=== PATIENT | female | born 1945 | race Caucasian/White ===

== ENCOUNTER 2021-07-08 14:08 | Emergency (ER) | payer MEDICARE, MEDICAID, SELFPAY ==
--- NOTE | ~2021-07-08 | XR_ITS ---
EXAMINATION: XR CHEST CLINICAL INFORMATION: Weakness COMPARISON: None TECHNIQUE: 2 views of the chest were obtained. FINDINGS: No significant abnormality is noted involving the heart, lungs, mediastinum, bony thorax or soft tissues. XR/XR chest 2V IMPRESSION: No acute disease.
--- NOTE | ~2021-07-08 | XR_ITS ---
EXAMINATION: XR KNEE, RIGHT CLINICAL INFORMATION: Fall, pain COMPARISON: None TECHNIQUE: Single AP view right knee is performed as per request. FINDINGS: Single AP view of the right knee shows no fracture or destructive process. There is no joint narrowing or erosive change. No periostitis. XR/XR knee RT 1V IMPRESSION: Limited exam, only AP view. No bony abnormality. No joint narrowing.
--- NOTE | ~2021-07-08 | CT_ITS ---
EXAMINATION: CT ANGIOGRAM NECK WITH CONTRAST CT ANGIOGRAM BRAIN WITH CONTRAST CLINICAL INFORMATION: Drift right hand. COMPARISON: Head CT performed just prior. TECHNIQUE: Test bolus sequences followed by intravenous administration 100 mL of Omnipaque 350. Helical imaging was performed in the axial plane from the thoracic inlet to the skull vertex. Delayed postcontrast imaging of the head was also performed. The data was processed at the time study technologist workstation for generation of MIP sequences. Angled MIPs and volume rendered reformatted images were also generated at an offline 3D workstation. Stenoses are assessed in accordance with NASCET criteria unless otherwise indicated. This CT examination was performed using dose optimization techniques as appropriate, variously including the following: *Automated exposure control *Adjustment of mA and/or kV according to patient size (this includes techniques or standardized protocols for targeted exams where dose is matched to indication/reason for exam; i.e. extremities or head) *Use of iterative reconstruction technique DLP: 2281 mGy-cm FINDINGS: Head CT: There is no intracranial hemorrhage, large acute infarction, or mass lesion. Hypoattenuation in the cerebral white matter is again identified compatible chronic microangiopathy. Chronic lacunar infarcts are seen in the basal ganglia, thalami, and deep cerebral white matter. There is no hydrocephalus. The visualized paranasal sinuses and mastoid air cells are clear. Neck CTA: Atheromatous changes are seen involving the aortic arch and great vessel origins but without significant stenosis. There is pseudoaneurysm seen arising from the proximal aspect of the right innominate artery measuring 5 mm. Mild atheromatous changes are seen at the carotid bifurcations without associated stenosis. The cervical segments of both ICAs are patent. Both vertebral arteries are patent throughout the neck. Head CTA: No proximal vessel occlusion is seen. The vertebrobasilar system is patent. The condemnation engineer are patent. There is -type origin of the left ORTHOPEDIC ASSISTANT. The ORTHOPEDIC ASSISTANT collaterals are symmetric. The intracranial ICAs are patent. No MCA occlusion is seen. There is focal high-grade stenosis of the left proximal A3 segment with diminutive opacification through the left distal LIVIA territory. No aneurysm is seen. The dural venous sinuses are normally opacified. Non-vascular findings: Interlobular septal thickening is seen in the upper lungs. There is no consolidation. Small centrilobular nodules are present within the upper lobes. The cervical soft tissues are within normal limits. Mild degenerative changes are seen in the cervical spine. CT/CT angio head neck stroke IMPRESSION: Severe stenosis of the left A3 LIVIA segment with poor opacification distally. No proximal vessel occlusion identified. Major neck arteries are patent. This critical result was discussed with Dr. Hector on 07/09/2021 8:47 AM, and it was ascertained that the content and urgency of the report was understood at the time of direct communication. Small pseudoaneurysm measuring 5 mm seen arising from the right innominate artery. Incidentally noted centrilobular nodules within the upper lungs presumably, infectious/inflammatory.
--- NOTE | ~2021-07-08 | CT_ITS ---
EXAMINATION: CT HEAD WITHOUT CONTRAST CLINICAL INFORMATION: Weakness COMPARISON: August 31, 2016 TECHNIQUE: Contiguous axial imaging was performed from the skull base to vertex without intravenous administration of contrast. This CT examination was performed using dose optimization techniques as appropriate, variously including the following: *Automated exposure control *Adjustment of mA and/or kV according to patient size (this includes techniques or standardized protocols for targeted exams where dose is matched to indication/reason for exam; i.e. extremities or head) *Use of iterative reconstruction technique DLP: 931 mGy-cm FINDINGS: There is no evidence of acute intracranial hemorrhage or territorial infarction. No abnormal mass effect or midline shift is seen. Vang to white matter differentiation is well preserved. No extra-axial fluid collections are identified. The ventricles are normal in size. Since previous study there has been lacunar infarcts within the left caudate head and anterior limb of the left internal capsule. There is also to lacunar infarcts noted within the frontal deep white matter on the right. There is periventricular white matter low density consistent with microangiopathy. The osseous structures and soft tissues are normal. The mastoid air cells and visualized portions of the paranasal sinuses are well aerated. CT/CT head/brain wo con IMPRESSION: No acute intracranial pathology. Microangiopathy with lacunar infarcts.
--- NOTE | ~2021-07-08 | CT_ITS ---
EXAMINATION: CT HEAD WITHOUT CONTRAST CLINICAL INFORMATION: Left-sided MCA stroke COMPARISON: CT head 07/09/2021. CT angiography of head 07/09/2021 TECHNIQUE: Contiguous axial imaging was performed from the skull base to vertex without intravenous administration of contrast. This CT examination was performed using dose optimization techniques as appropriate, variously including the following: *Automated exposure control *Adjustment of mA and/or kV according to patient size (this includes techniques or standardized protocols for targeted exams where dose is matched to indication/reason for exam; i.e. extremities or head) *Use of iterative reconstruction technique DLP: 735 mGy-cm FINDINGS: There is no evidence of acute intracranial hemorrhage or acute territorial infarction. Redemonstration of the chronic lacunar infarcts in the deep cerebral white matter, basal ganglia and thalamic. No abnormal mass effect or midline shift is seen. Vang to white matter differentiation is well preserved. No extra-axial fluid collections are identified. There is generalized global volume loss. There is moderate prominence of the ventricles and the sulci . There is mild hypodensity of the periventricular white matter due to chronic small vessel ischemic disease. There are vascular calcifications of the internal carotid arteries bilaterally. The osseous structures and soft tissues are normal. The mastoid air cells and visualized portions of the paranasal sinuses are well aerated. CT/CT head/brain wo con IMPRESSION: No acute intracranial pathology.
--- NOTE | ~2021-07-08 | CT_ITS ---
EXAMINATION: CT HEAD WITHOUT CONTRAST (STROKE PROTOCOL) CLINICAL INFORMATION: Drift of right hand. COMPARISON: Head CT August 31, 2016. TECHNIQUE: Contiguous axial imaging was performed from the skull base to vertex without intravenous administration of contrast. This CT examination was performed using dose optimization techniques as appropriate, variously including the following: *Automated exposure control *Adjustment of mA and/or kV according to patient size (this includes techniques or standardized protocols for targeted exams where dose is matched to indication/reason for exam; i.e. extremities or head) *Use of iterative reconstruction technique DLP: 931 mGy-cm FINDINGS: There is no intracranial hemorrhage, extra-axial collection, mass effect, or territorial infarction. Mild to moderate patchy hypoattenuation is seen in the bilateral cerebral white matter compatible chronic microangiopathy. Chronic lacunar infarcts are seen within the bilateral basal ganglia, thalami and deep cerebral white matter. The ventricles and sulci are commensurate. The extracranial structures are unremarkable. CT/CT head for stroke IMPRESSION: No intracranial hemorrhage or CT evidence of large territorial infarction. Background changes of chronic microangiopathy and chronic lacunar infarcts in the deep cerebral white matter, basal ganglia, and thalami. This critical result was discussed with Dr. Hector on 07/09/2021 8:03 AM, and it was ascertained that the content and urgency of the report was understood at the time of direct communication.
[2021-07-08 14:15] VITALS: BP 152/80; BP 186/83; PULSE 76; PULSE 82; RESP 18; TEMP 36.8; O2SAT 94; O2SAT 98; BMI 32.1
--- NOTE | 2021-07-08 14:41 | ECG_ITS ---
Test Reason : ALTERED MENTAL Blood Pressure : / mmHG Vent. Rate : 074 BPM Atrial Rate : 074 BPM P-R Int : 174 ms QRS Dur : 130 ms QT Int : 444 ms P-R-T Axes : 038 -37 076 degrees QTc Int : 492 ms Normal sinus rhythm Left axis deviation Right bundle branch block Voltage criteria for left ventricular hypertrophy Inferior infarct , age undetermined T wave abnormality, consider lateral ischemia Abnormal ECG When compared with ECG of 31-AUG-2016 13:28, Right bundle branch block has replaced Incomplete right bundle branch block Inferior infarct is now Present Referred By: Apryl Warren Electronically Signed By:IVAN LOPEZ
--- NOTE | 2021-07-08 15:30 | ED.GENADULT ---
HPI - General Adult General Chief complaint: Altered Mental Status <Apryl Warren NP - Last Filed: 07/08/21 18:01> Stated complaint: SEVERAL FALLS W/TIM LEG PAIN <Apryl Warren NP - Last Filed: 07/08/21 18:01> Time Seen by Provider: 07/08/21 14:26 <Apryl Warren NP - Last Filed: 07/08/21 18:01> Source: patient and EMS <Apryl Warren NP - Last Filed: 07/08/21 18:01> Mode of arrival: EMS <Apryl Warren NP - Last Filed: 07/08/21 18:01> Limitations: no limitations <Apryl Warren NP - Last Filed: 07/08/21 18:01> History of Present Illness HPI narrative: 75-year-old female with no known past medical history here with complaints of generalized weakness with multiple falls at home. The patient tells me that she has had increasing falls over the last 6 months with feeling like her legs are weak and giving out on her. Today she had 3 or 4 falls and was unable to get up so had to call the ambulance to bring her. She denies any other symptoms. She tells me she has not seen a primary care doctor in several years and is not currently taking any medication. <Apryl Warren NP - Last Filed: 07/08/21 18:01> Related Data Home medications: Home Medications Medication Instructions Recorded Confirmed walker (Ultra-Light Rollator) #1 ea 09/21/20 07/08/21 <Apryl Warren NP - Last Filed: 07/08/21 18:01> Allergies/adverse reactions: Allergies Allergy/AdvReac Type Severity Reaction Status Date / Time codeine [CODEINE] Allergy Unknown STOMACH Unverified 07/27/20 16:22 UPSET lisinopril AdvReac Unknown cough Verified 06/29/20 00:00 Codeine Sulfate Allergy Unknown GI upset Uncoded 06/29/20 00:00 <Apryl Warren NP - Last Filed: 07/08/21 18:01> Review of Systems Review of Systems: Yes all other systems are reviewed and are negative <Apryl Warren NP - Last Filed: 07/08/21 18:01> Constitutional: Constitutional: Reports no additional constitutional complaints, Denies body ache(s), Denies chills, Denies fever(s), Denies headache(s) and Reports weakness <Apryl Warren NP - Last Filed: 07/08/21 18:01> Eyes: Eyes: Reports no additional eye complaints and Denies change in vision <Apryl Warren NP - Last Filed: 07/08/21 18:01> ENT: Reports system reviewed and no additional complaints, except as documented, Denies dizziness, Denies headache(s), Denies nasal congestion, Denies nasal discharge and Denies neck pain <Apryl Warren NP - Last Filed: 07/08/21 18:01> Cardiovascular: Cardiovascular: Reports no additional cardiovascular complaints, Denies chest pain, Denies leg edema and Denies dyspnea <Apryl Warren NP - Last Filed: 07/08/21 18:01> Respiratory: Respiratory: Reports no additional respiratory complaints, Denies cough and Denies dyspnea <Apryl Warren NP - Last Filed: 07/08/21 18:01> Gastrointestinal: Gastrointestinal: Reports no additional gastrointestinal complaints, Denies abdominal pain, Denies diarrhea, Denies nausea and Denies vomiting <Apryl Warren NP - Last Filed: 07/08/21 18:01> Genitourinary: Genitourinary: Reports no additional female genitourinary complaints and Denies urinary incontinence <Apryl Warren NP - Last Filed: 07/08/21 18:01> Musculoskeletal: Musculoskeletal: Reports no additional musculoskeletal complaints, Denies back pain, Denies arthralgias, Denies joint swelling, Denies neck pain, Denies numbness and Denies tingling <Apryl Warren NP - Last Filed: 07/08/21 18:01> Integumentary/Breasts: Skin/Breast: Reports system reviewed and no additional complaints, except as docu and Denies rash <Apryl Warren NP - Last Filed: 07/08/21 18:01> Neurologic: Reports system reviewed and no additional complaints, except as documented, Denies Abnormal speech present, Denies dizziness, Denies headache(s), Denies numbness, Denies tingling and Reports weakness <Apryl Warren NP - Last Filed: 07/08/21 18:01> [facility] Past Medical History Attestation statement: The following information was validated with the patient. <Apryl Warren NP - Last Filed: 07/08/21 18:01> Source: old records reviewed and nursing notes reviewed <Apryl Warren NP - Last Filed: 07/08/21 18:01> Medical History: Medical History Unable to think clearly <Apryl Warren NP - Last Filed: 07/08/21 18:01> Social History Social History: Social History Alcohol intake: never Smoked in Last 30 Days: No Use of substances other than those prescribed or required for medical reasons: No Advance Directives: Yes Advance Directives Information Provided: Yes Advance Directives on File: No <Apryl Warren NP - Last Filed: 07/08/21 18:01> Physical Exam Vital Signs: Vital Signs: Last Vital Signs Temp 79.7 F L 07/08/21 20:00 Pulse 83 07/09/21 08:06 Resp 18 07/09/21 05:59 BP 120/98 H 07/09/21 08:06 Pulse Ox 97 07/09/21 07:41 Body Mass Index 32.1 <Apryl Warren NP - Last Filed: 07/08/21 18:01> Vital Signs: Last Vital Signs Temp 79.7 F L 07/08/21 20:00 Pulse 83 07/09/21 08:06 Resp 18 07/09/21 05:59 BP 120/98 H 07/09/21 08:06 Pulse Ox 97 07/09/21 07:41 Body Mass Index 32.1 <Karyna Hector MD - Last Filed: 07/09/21 13:37> Const: General: cooperative, healthy appearing, comfortable and no acute distress <Apryl Warren NP - Last Filed: 07/08/21 18:01> Orientation/consciousness: oriented to person and oriented to place <Apryl Warren NP - Last Filed: 07/08/21 18:01> Limitations: no limitations <Apryl Warren NP - Last Filed: 07/08/21 18:01> HENMT: Head: Yes normal to inspection <Apryl Warren NP - Last Filed: 07/08/21 18:01> Ears: hearing grossly normal bilaterally <Apryl Warren NP - Last Filed: 07/08/21 18:01> General nose exam: Normal external nose present <Apryl Warren NP - Last Filed: 07/08/21 18:01> Face and sinus: Yes normal facial exam <Apryl Warren NP - Last Filed: 07/08/21 18:01> Mouth: Normal oral and palatal mucosa present <Apryl Warren NP - Last Filed: 07/08/21 18:01> Throat: Yes posterior oropharynx normal <Apryl Warren NP - Last Filed: 07/08/21 18:01> Eyes: General: appearance normal, both eyes and all related structures <Apryl Warren NP - Last Filed: 07/08/21 18:01> Pupils: Equal, round and reactive pupils present <Apryl Warren NP - Last Filed: 07/08/21 18:01> Neck: Neck: Yes normal visual inspection <Apryl Warren NP - Last Filed: 07/08/21 18:01> Chest: Chest palpation & inspection: normal inspection of the chest <Apryl Warren NP - Last Filed: 07/08/21 18:01> Resp: Effort & Inspection: normal respiratory effort <Apryl Warren NP - Last Filed: 07/08/21 18:01> Auscultation: clear to auscultation bilaterally <Apryl Warren NP - Last Filed: 07/08/21 18:01> Cardio: Rate: regular rate <Apryl Warren NP - Last Filed: 07/08/21 18:01> Rhythm: regular rhythm <Apryl Warren NP - Last Filed: 07/08/21 18:01> Peripheral pulses: Peripheral pulses 2+ throughout <Apryl Warren NP - Last Filed: 07/08/21 18:01> GI: Inspection: Yes normal to inspection <Apryl Warren NP - Last Filed: 07/08/21 18:01> Palpation (GI): Soft to palpation and nontender <Apryl Warren NP - Last Filed: 07/08/21 18:01> Auscultation: normal bowel sounds <Apryl Warren NP - Last Filed: 07/08/21 18:01> Back/Spine/Pelvis: Thoracic/Lumbar Spine: thoracic and lumbar spine normal to inspection <Apryl Warren NP - Last Filed: 07/08/21 18:01> Skin: General skin exam: no rashes or lesions noted <Apryl Warren NP - Last Filed: 07/08/21 18:01> Neuro: General: oriented to person, oriented to place, no focal motor deficits, normal sensation to monofilament and Unable to assess gait <Apryl Warren NP - Last Filed: 07/08/21 18:01> Cranial nerves: Yes CN's II-XII intact bilaterally, Yes Equal, round and reactive pupils present, Yes Bilaterally intact EOM present, Yes Nystagmus not present, Yes Normal facial strength present and Yes Midline tongue present <Apryl Warren NP - Last Filed: 07/08/21 18:01> Cognition (Neuro): normal cognition <Apryl Warren NP - Last Filed: 07/08/21 18:01> Speech: No Abnormal speech present <Apryl Warren NP - Last Filed: 07/08/21 18:01> Gait exam (Neuro): Unable to assess gait <Apryl Warren NP - Last Filed: 07/08/21 18:01> Motor exam (neuro): 5/5 motor strength present throughout <Apryl Warren NP - Last Filed: 07/08/21 18:01> Sensory Exam: Normal double simultaneous stimulation for sensation <Apryl Warren NP - Last Filed: 07/08/21 18:01> Deep tendon reflexes (DTR's): Right patellar reflex intensity grade: 2+ and Left patellar reflex intensity grade: 2+ <Apryl Warren NP - Last Filed: 07/08/21 18:01> Coordination: [id number] test normal and [id number] test normal <Apryl Warren NP - Last Filed: 07/08/21 18:01> Extrem: General: Yes normal to inspection, Yes no pedal edema and Yes no calf tenderness <Apryl Warren NP - Last Filed: 07/08/21 18:01> Course Course Course Narrative: 85-year-old female here after having multiple falls at home with complaints of generalized weakness and feeling like her legs are going to give out over the last 6 months. Patient tells me she did not have any head strike during her false today. She reports several bruises over her lower legs but denies any pain. She tells me she has not seen a primary care doctor in several years. She denies taking any daily medications or any medical diagnosis is. She is pleasantly confused with no overt neurological deficits. I called and spoke to her son Oscar. He tells me for the last few months he has been trying to get her into assisted living the unsuccessfully. He tells me that she has had some confusion for 6-9 months but has been refusing to go in to see a doctor so has no formal diagnosis of dementia. Hemodynamically stable. Will check labs, UA, CT head, chest x-ray. 1705-labs are unremarkable. Chest x-ray shows no acute finding. 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 1800-UA negative. Patient will need physical therapy and case management. It is Friday so she will remain in the ED. I spoke to the patient's son(oscar) who is the patient's health care proxy. The patient is not happy to remain in the emergency department but at this time I do not feel like she can make her own medical decisions. Therefore she will remain overnight. -signed out to night team pending above <Apryl Warren NP - Last Filed: 07/08/21 18:01> 85-year-old female here after having multiple falls at home with complaints of generalized weakness and feeling like her legs are going to give out over the last 6 months. Patient tells me she did not have any head strike during her false today. She reports several bruises over her lower legs but denies any pain. She tells me she has not seen a primary care doctor in several years. She denies taking any daily medications or any medical diagnosis is. She is pleasantly confused with no overt neurological deficits. I called and spoke to her son Oscar. He tells me for the last few months he has been trying to get her into assisted living the unsuccessfully. He tells me that she has had some confusion for 6-9 months but has been refusing to go in to see a doctor so has no formal diagnosis of dementia. Hemodynamically stable. Will check labs, UA, CT head, chest x-ray. 1705-labs are unremarkable. Chest x-ray shows no acute finding. 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 1800-UA negative. Patient will need physical therapy and case management. It is Friday so she will remain in the ED. I spoke to the patient's son(oscar) who is the patient's health care proxy. The patient is not happy to remain in the emergency department but at this time I do not feel like she can make her own medical decisions. Therefore she will remain overnight. -signed out to night team pending above Patient woke up this morning approximately around 07:00, patient is eating breakfast, patient states that her arm feels heavy, not functioning quite right. Patient woke up with the symptoms. On physical exam patient has positive drift in the right hand. According to the patient this is not normal for her. Reviewing patient's previous notes, she did not have any neurological deficits. Patient denies any other symptoms. Patient is going to head CT scan as a stroke protocol. CT and CTA of head and neck are within normal limits, no acute findings. Patient's neurological exam is inconsistent. When patient is being observed when she is in the room by herself, patient has full range of motion, moves all extremities. However, when anyone walks into the room, asked her how she is doing, patient seems to have worsening of symptoms, which resolve once the provider exits. Later this morning, I was informed by the patient's nurse that the patient was found on the floor, tried to get out of bed. Patient has a small ecchymosis to the right knee. X-ray negative for fracture. <Karyna Hector MD - Last Filed: 07/09/21 13:37> Medical Decision Making MDM Narrative Medical decision making narrative: Multiple falls-confusion <Apryl Warren NP - Last Filed: 07/08/21 18:01> Medical Records Medical records reviewed: Yes I reviewed the patient's medical records. <Apryl Warren NP - Last Filed: 07/08/21 18:01> Lab Data Lab results reviewed: Yes I reviewed the patient's lab results. <Apryl Warren NP - Last Filed: 07/08/21 18:01> Result diagrams: : 07/08/21 15:25 07/08/21 15:25 <Apryl Warren NP - Last Filed: 07/08/21 18:01> Labs: Lab Results 07/08/21 07/08/21 07/08/21 Range/Units 15:24 15:24 15:25 WBC 12.0 H (4.8-10.8) X10*3/uL RBC 4.59 (4.20-5.50) X10*6/uL Hgb 13.6 (12.0-16.0) g/dl Hct 40.1 (37-47) % MCV 87.4 (80-98) fL MCH 29.6 (27.0-33.0) pg MCHC 33.9 (31.0-35.0) g/dl RDW 13.7 (11.0-16.0) % Plt Count 276 (160-400) X10*3/uL MPV 10.3 (9.4-12.3) fL Immature Gran % (Auto) 0.7 H (0.0-0.4) % Neut % (Auto) 74.7 H (45-73) % Lymph % (Auto) 15.5 L (20-40) % Hendricks % (Auto) 8.3 (2-11) % Eos % (Auto) 0.3 (0-4) % Baso % (Auto) 0.5 (0-2) % Lymph # (Auto) 1.9 (1.2-4.9) X10*3/uL [place] # (Auto) 1.0 (0.1-1.2) X10*3/uL Eos # (Auto) 0.0 (0.0-0.4) X10*3/uL Baso # (Auto) 0.1 (0.0-0.2) X10*3/uL Abs Immat Gran (auto) 0.08 H (0.00-0.03) X10*3/uL Absolute Neuts (auto) 9.0 H (2.0-8.3) X10*3/uL Absolute Nucleated RBC 0.000 (0.0-0.012) X10*3/uL Nucleated RBC % (auto) 0.0 (0.0-0.2) /100WBC PT 13.5 H (9.9-13.0) SEC Whole Blood PT (11.1-13.5) sec INR 1.2 H (0.9-1.1) Whole Blood INR (0.9-1.1) Sodium (135-145) mmol/L Potassium (3.3-5.1) mmol/L Chloride (96-108) mmol/L Carbon Dioxide (22-29) mmol/L Anion Gap (12-20) BUN (9-16) mg/dL Creatinine (0.5-1.4) mg/dL Estim Creat Clear Calc Estimated GFR POC Glucose (60-115) mg/dL Random Glucose (60-115) mg/dL Calcium (8.4-10.2) mg/dL Magnesium (1.6-2.6) mg/dL Total Bilirubin (0.0-1.0) mg/dL Direct Bilirubin (0.0-0.5) mg/dL AST (5-31) U/L ALT (0-31) U/L Alkaline Phosphatase (39-117) U/L Total Creatine Kinase (26-140) U/L Troponin I High Sens (<3.5-17.0) ng/L Total Protein (6.5-8.0) g/dL Albumin (3.5-5.0) g/dL Urine Color Urine Appearance Urine pH (5.0-8.0) Ur Specific [place] (1.005-1.025) Urine Protein (NEG-TRACE) MG/DL Urine Glucose (UA) (NEG) MG/DL Urine Ketones (NEG) MG/DL Urine Blood (NEG) Urine Nitrite (NEG) Ur Leukocyte Esterase (NEG) Urine RBC (0) /HPF Urine WBC (0-4) /HPF Ur Squamous Epith Cells /LPF Urine Bacteria /LPF Hyaline Casts /LPF COVID-19 ([facility]) Negative (Negative) COVID-19 Clin Com See Note 07/08/21 07/08/21 07/08/21 Range/Units 15:25 15:25 16:26 WBC (4.8-10.8) X10*3/uL RBC (4.20-5.50) X10*6/uL Hgb (12.0-16.0) g/dl Hct (37-47) % MCV (80-98) fL MCH (27.0-33.0) pg MCHC (31.0-35.0) g/dl RDW (11.0-16.0) % Plt Count (160-400) X10*3/uL MPV (9.4-12.3) fL Immature Gran % (Auto) (0.0-0.4) % Neut % (Auto) (45-73) % Lymph % (Auto) (20-40) % Hendricks % (Auto) (2-11) % Eos % (Auto) (0-4) % Baso % (Auto) (0-2) % Lymph # (Auto) (1.2-4.9) X10*3/uL [place] # (Auto) (0.1-1.2) X10*3/uL Eos # (Auto) (0.0-0.4) X10*3/uL Baso # (Auto) (0.0-0.2) X10*3/uL Abs Immat Gran (auto) (0.00-0.03) X10*3/uL Absolute Neuts (auto) (2.0-8.3) X10*3/uL Absolute Nucleated RBC (0.0-0.012) X10*3/uL Nucleated RBC % (auto) (0.0-0.2) /100WBC PT (9.9-13.0) SEC Whole Blood PT (11.1-13.5) sec INR (0.9-1.1) Whole Blood INR (0.9-1.1) Sodium 139 (135-145) mmol/L Potassium 3.9 (3.3-5.1) mmol/L Chloride 101 (96-108) mmol/L Carbon Dioxide 27 (22-29) mmol/L Anion Gap 15 (12-20) BUN 14 (9-16) mg/dL Creatinine 1.12 (0.5-1.4) mg/dL Estim Creat Clear Calc 47.4 Estimated GFR 47 POC Glucose (60-115) mg/dL Random Glucose 182 H (60-115) mg/dL Calcium 9.5 (8.4-10.2) mg/dL Magnesium 2.3 (1.6-2.6) mg/dL Total Bilirubin 1.3 H (0.0-1.0) mg/dL Direct Bilirubin 0.4 (0.0-0.5) mg/dL AST 38 H (5-31) U/L ALT 35 H (0-31) U/L Alkaline Phosphatase 88 (39-117) U/L Total Creatine Kinase 159 H (26-140) U/L Troponin I High Sens 8.5 (<3.5-17.0) ng/L Total Protein 7.3 (6.5-8.0) g/dL Albumin 4.0 (3.5-5.0) g/dL Urine Color YELLOW Urine Appearance CLEAR Urine pH 6.0 (5.0-8.0) Ur Specific [place] 1.010 (1.005-1.025) Urine Protein TRACE (NEG-TRACE) MG/DL Urine Glucose (UA) NEG (NEG) MG/DL Urine Ketones 5 (NEG) MG/DL Urine Blood NEG (NEG) Urine Nitrite NEG (NEG) Ur Leukocyte Esterase 1+ H (NEG) Urine RBC 0-2 (0) /HPF Urine WBC 5-9 H (0-4) /HPF Ur Squamous Epith Cells 4+ /LPF Urine Bacteria NONE /LPF Hyaline Casts 0-2 /LPF COVID-19 ([facility]) (Negative) COVID-19 Clin Com 07/09/21 07/09/21 Range/Units 08:04 08:06 WBC (4.8-10.8) X10*3/uL RBC (4.20-5.50) X10*6/uL Hgb (12.0-16.0) g/dl Hct (37-47) % MCV (80-98) fL MCH (27.0-33.0) pg MCHC (31.0-35.0) g/dl RDW (11.0-16.0) % Plt Count (160-400) X10*3/uL MPV (9.4-12.3) fL Immature Gran % (Auto) (0.0-0.4) % Neut % (Auto) (45-73) % Lymph % (Auto) (20-40) % Hendricks % (Auto) (2-11) % Eos % (Auto) (0-4) % Baso % (Auto) (0-2) % Lymph # (Auto) (1.2-4.9) X10*3/uL [place] # (Auto) (0.1-1.2) X10*3/uL Eos # (Auto) (0.0-0.4) X10*3/uL Baso # (Auto) (0.0-0.2) X10*3/uL Abs Immat Gran (auto) (0.00-0.03) X10*3/uL Absolute Neuts (auto) (2.0-8.3) X10*3/uL Absolute Nucleated RBC (0.0-0.012) X10*3/uL Nucleated RBC % (auto) (0.0-0.2) /100WBC PT (9.9-13.0) SEC Whole Blood PT 13.5 (11.1-13.5) sec INR (0.9-1.1) Whole Blood INR 1.1 (0.9-1.1) Sodium (135-145) mmol/L Potassium (3.3-5.1) mmol/L Chloride (96-108) mmol/L Carbon Dioxide (22-29) mmol/L Anion Gap (12-20) BUN (9-16) mg/dL Creatinine (0.5-1.4) mg/dL Estim Creat Clear Calc Estimated GFR POC Glucose 248 H (60-115) mg/dL Random Glucose (60-115) mg/dL Calcium (8.4-10.2) mg/dL Magnesium (1.6-2.6) mg/dL Total Bilirubin (0.0-1.0) mg/dL Direct Bilirubin (0.0-0.5) mg/dL AST (5-31) U/L ALT (0-31) U/L Alkaline Phosphatase (39-117) U/L Total Creatine Kinase (26-140) U/L Troponin I High Sens (<3.5-17.0) ng/L Total Protein (6.5-8.0) g/dL Albumin (3.5-5.0) g/dL Urine Color Urine Appearance Urine pH (5.0-8.0) Ur Specific [place] (1.005-1.025) Urine Protein (NEG-TRACE) MG/DL Urine Glucose (UA) (NEG) MG/DL Urine Ketones (NEG) MG/DL Urine Blood (NEG) Urine Nitrite (NEG) Ur Leukocyte Esterase (NEG) Urine RBC (0) /HPF Urine WBC (0-4) /HPF Ur Squamous Epith Cells /LPF Urine Bacteria /LPF Hyaline Casts /LPF COVID-19 ([facility]) (Negative) COVID-19 Clin Com <Apryl Warren, MAINTENANCE MANAGER - Last Filed: 07/08/21 18:01> Lab Results 07/08/21 07/08/21 07/08/21 Range/Units 15:24 15:24 15:25 WBC 12.0 H (4.8-10.8) X10*3/uL RBC 4.59 (4.20-5.50) X10*6/uL Hgb 13.6 (12.0-16.0) g/dl Hct 40.1 (37-47) % MCV 87.4 (80-98) fL MCH 29.6 (27.0-33.0) pg MCHC 33.9 (31.0-35.0) g/dl RDW 13.7 (11.0-16.0) % Plt Count 276 (160-400) X10*3/uL MPV 10.3 (9.4-12.3) fL Immature Gran % (Auto) 0.7 H (0.0-0.4) % Neut % (Auto) 74.7 H (45-73) % Lymph % (Auto) 15.5 L (20-40) % Hendricks % (Auto) 8.3 (2-11) % Eos % (Auto) 0.3 (0-4) % Baso % (Auto) 0.5 (0-2) % Lymph # (Auto) 1.9 (1.2-4.9) X10*3/uL [place] # (Auto) 1.0 (0.1-1.2) X10*3/uL Eos # (Auto) 0.0 (0.0-0.4) X10*3/uL Baso # (Auto) 0.1 (0.0-0.2) X10*3/uL Abs Immat Gran (auto) 0.08 H (0.00-0.03) X10*3/uL Absolute Neuts (auto) 9.0 H (2.0-8.3) X10*3/uL Absolute Nucleated RBC 0.000 (0.0-0.012) X10*3/uL Nucleated RBC % (auto) 0.0 (0.0-0.2) /100WBC PT 13.5 H (9.9-13.0) SEC Whole Blood PT (11.1-13.5) sec INR 1.2 H (0.9-1.1) Whole Blood INR (0.9-1.1) Sodium (135-145) mmol/L Potassium (3.3-5.1) mmol/L Chloride (96-108) mmol/L Carbon Dioxide (22-29) mmol/L Anion Gap (12-20) BUN (9-16) mg/dL Creatinine (0.5-1.4) mg/dL Estim Creat Clear Calc Estimated GFR POC Glucose (60-115) mg/dL Random Glucose (60-115) mg/dL Calcium (8.4-10.2) mg/dL Magnesium (1.6-2.6) mg/dL Total Bilirubin (0.0-1.0) mg/dL Direct Bilirubin (0.0-0.5) mg/dL AST (5-31) U/L ALT (0-31) U/L Alkaline Phosphatase (39-117) U/L Total Creatine Kinase (26-140) U/L Troponin I High Sens (<3.5-17.0) ng/L Total Protein (6.5-8.0) g/dL Albumin (3.5-5.0) g/dL Urine Color Urine Appearance Urine pH (5.0-8.0) Ur Specific [place] (1.005-1.025) Urine Protein (NEG-TRACE) MG/DL Urine Glucose (UA) (NEG) MG/DL Urine Ketones (NEG) MG/DL Urine Blood (NEG) Urine Nitrite (NEG) Ur Leukocyte Esterase (NEG) Urine RBC (0) /HPF Urine WBC (0-4) /HPF Ur Squamous Epith Cells /LPF Urine Bacteria /LPF Hyaline Casts /LPF COVID-19 ([facility]) Negative (Negative) COVID-19 Clin Com See Note 07/08/21 07/08/21 07/08/21 Range/Units 15:25 15:25 16:26 WBC (4.8-10.8) X10*3/uL RBC (4.20-5.50) X10*6/uL Hgb (12.0-16.0) g/dl Hct (37-47) % MCV (80-98) fL MCH (27.0-33.0) pg MCHC (31.0-35.0) g/dl RDW (11.0-16.0) % Plt Count (160-400) X10*3/uL MPV (9.4-12.3) fL Immature Gran % (Auto) (0.0-0.4) % Neut % (Auto) (45-73) % Lymph % (Auto) (20-40) % [place] % (Auto) (2-11) % Eos % (Auto) (0-4) % Baso % (Auto) (0-2) % Lymph # (Auto) (1.2-4.9) X10*3/uL [place] # (Auto) (0.1-1.2) X10*3/uL Eos # (Auto) (0.0-0.4) X10*3/uL Baso # (Auto) (0.0-0.2) X10*3/uL Abs Immat Gran (auto) (0.00-0.03) X10*3/uL Absolute Neuts (auto) (2.0-8.3) X10*3/uL Absolute Nucleated RBC (0.0-0.012) X10*3/uL Nucleated RBC % (auto) (0.0-0.2) /100WBC PT (9.9-13.0) SEC Whole Blood PT (11.1-13.5) sec INR (0.9-1.1) Whole Blood INR (0.9-1.1) Sodium 139 (135-145) mmol/L Potassium 3.9 (3.3-5.1) mmol/L Chloride 101 (96-108) mmol/L Carbon Dioxide 27 (22-29) mmol/L Anion Gap 15 (12-20) BUN 14 (9-16) mg/dL Creatinine 1.12 (0.5-1.4) mg/dL Estim Creat Clear Calc 47.4 Estimated GFR 47 POC Glucose (60-115) mg/dL Random Glucose 182 H (60-115) mg/dL Calcium 9.5 (8.4-10.2) mg/dL Magnesium 2.3 (1.6-2.6) mg/dL Total Bilirubin 1.3 H (0.0-1.0) mg/dL Direct Bilirubin 0.4 (0.0-0.5) mg/dL AST 38 H (5-31) U/L ALT 35 H (0-31) U/L Alkaline Phosphatase 88 (39-117) U/L Total Creatine Kinase 159 H (26-140) U/L Troponin I High Sens 8.5 (<3.5-17.0) ng/L Total Protein 7.3 (6.5-8.0) g/dL Albumin 4.0 (3.5-5.0) g/dL Urine Color YELLOW Urine Appearance CLEAR Urine pH 6.0 (5.0-8.0) Ur Specific [place] 1.010 (1.005-1.025) Urine Protein TRACE (NEG-TRACE) MG/DL Urine Glucose (UA) NEG (NEG) MG/DL Urine Ketones 5 (NEG) MG/DL Urine Blood NEG (NEG) Urine Nitrite NEG (NEG) Ur Leukocyte Esterase 1+ H (NEG) Urine RBC 0-2 (0) /HPF Urine WBC 5-9 H (0-4) /HPF Ur Squamous Epith Cells 4+ /LPF Urine Bacteria NONE /LPF Hyaline Casts 0-2 /LPF COVID-19 ([facility]) (Negative) COVID-19 Clin Com 07/09/21 07/09/21 Range/Units 08:04 08:06 WBC (4.8-10.8) X10*3/uL RBC (4.20-5.50) X10*6/uL Hgb (12.0-16.0) g/dl Hct (37-47) % MCV (80-98) fL MCH (27.0-33.0) pg MCHC (31.0-35.0) g/dl RDW (11.0-16.0) % Plt Count (160-400) X10*3/uL MPV (9.4-12.3) fL Immature Gran % (Auto) (0.0-0.4) % Neut % (Auto) (45-73) % Lymph % (Auto) (20-40) % [place] % (Auto) (2-11) % Eos % (Auto) (0-4) % Baso % (Auto) (0-2) % Lymph # (Auto) (1.2-4.9) X10*3/uL [place] # (Auto) (0.1-1.2) X10*3/uL Eos # (Auto) (0.0-0.4) X10*3/uL Baso # (Auto) (0.0-0.2) X10*3/uL Abs Immat Gran (auto) (0.00-0.03) X10*3/uL Absolute Neuts (auto) (2.0-8.3) X10*3/uL Absolute Nucleated RBC (0.0-0.012) X10*3/uL Nucleated RBC % (auto) (0.0-0.2) /100WBC PT (9.9-13.0) SEC Whole Blood PT 13.5 (11.1-13.5) sec INR (0.9-1.1) Whole Blood INR 1.1 (0.9-1.1) Sodium (135-145) mmol/L Potassium (3.3-5.1) mmol/L Chloride (96-108) mmol/L Carbon Dioxide (22-29) mmol/L Anion Gap (12-20) BUN (9-16) mg/dL Creatinine (0.5-1.4) mg/dL Estim Creat Clear Calc Estimated GFR POC Glucose 248 H (60-115) mg/dL Random Glucose (60-115) mg/dL Calcium (8.4-10.2) mg/dL Magnesium (1.6-2.6) mg/dL Total Bilirubin (0.0-1.0) mg/dL Direct Bilirubin (0.0-0.5) mg/dL AST (5-31) U/L ALT (0-31) U/L Alkaline Phosphatase (39-117) U/L Total Creatine Kinase (26-140) U/L Troponin I High Sens (<3.5-17.0) ng/L Total Protein (6.5-8.0) g/dL Albumin (3.5-5.0) g/dL Urine Color Urine Appearance Urine pH (5.0-8.0) Ur Specific [place] (1.005-1.025) Urine Protein (NEG-TRACE) MG/DL Urine Glucose (UA) (NEG) MG/DL Urine Ketones (NEG) MG/DL Urine Blood (NEG) Urine Nitrite (NEG) Ur Leukocyte Esterase (NEG) Urine RBC (0) /HPF Urine WBC (0-4) /HPF Ur Squamous Epith Cells /LPF Urine Bacteria /LPF Hyaline Casts /LPF COVID-19 (LESTER) (Negative) COVID-19 Clin Com <Karyna Hector MD - Last Filed: 07/09/21 13:37> Imaging Data Chest x-ray: Attestation: I personally reviewed and interpreted this imaging study as follows: <Apryl Warren NP - Last Filed: 07/08/21 18:01> Radiologist's impression: [place] [id number] XRay Report Signed Patient: Blanca Sosa MR#: [id number] : 1945 Acct:[id number] Age/Sex: 75 / F ADM Date: 07/08/21 Loc: HO.ED Attending Dr: Ordering Physician: Apryl Warren NP Date of Service: 07/08/21 Procedure(s): XR chest 2V Accession Number(s): [id number] cc: Apryl Warren NP~ EXAMINATION: XR CHEST CLINICAL INFORMATION: Weakness COMPARISON: None TECHNIQUE: 2 views of the chest were obtained. FINDINGS: No significant abnormality is noted involving the heart, lungs, mediastinum, bony thorax or soft tissues. XR/XR chest 2V IMPRESSION: No acute disease. <REBECCA Lucero Last Filed: 07/08/21 18:01> CT scan - head: Attestation: I personally reviewed and interpreted this imaging study as follows: <REBECCA Lucero Last Filed: 07/08/21 18:01> Radiologist's impression: INDINGS: There is no evidence of acute intracranial hemorrhage or territorial infarction. No abnormal mass effect or midline shift is seen. Vang to white matter differentiation is well preserved. No extra-axial fluid collections are identified. The ventricles are normal in size. Since previous study there has been lacunar infarcts within the left caudate head and anterior limb of the left internal capsule. There is also to lacunar infarcts noted within the frontal deep white matter on the right. There is periventricular white matter low density consistent with microangiopathy. The osseous structures and soft tissues are normal. The mastoid air cells and visualized portions of the paranasal sinuses are well aerated. ? CT/CT head/brain wo con IMPRESSION: No acute intracranial pathology. ? Microangiopathy with lacunar infarcts. <REBECCA Lucero Last Filed: 07/08/21 18:01> ECG Data Attestation: I personally reviewed and interpreted this ECG as follows: <REBECCA Lucero Last Filed: 07/08/21 18:01> Interpretation: Normal sinus rhythm with a rate of 74, normal OK, RBBB unchnged from previous, nonspecific ST changes <REBECCA Lucero Last Filed: 07/08/21 18:01> Discharge Plan Discharge Clinical Impression: Altered mental status, Weakness, Multiple falls <REBECCA Lucero Last Filed: 07/08/21 18:01> Prescriptions: No [facility] (DME) Ultra-Light Rollator Misc See Rx Instructions .ROUTE .MEDSUPPLY Qty: 1 RF: 0 <REBECCA Lucero Last Filed: 07/08/21 18:01>
[2021-07-08 15:31] LABS: Basophils Absolute Auto 0.1 X10*3/uL (0.0-0.2); Basophils Percent Auto 0.5 % (0-2); Eosinophils Percent Auto 0.3 % (0-4); Hematocrit 40.1 % (37-47); Hemoglobin 13.6 g/dl (12.0-16.0); Imm Gran Abs Auto 0.08 X10*3/uL (0.00-0.03); Imm Gran Pct Auto 0.7 % (0.0-0.4); Lymphocytes Absolute Auto 1.9 X10*3/uL (1.2-4.9); Lymphocytes Percent Auto 15.5 % (20-40); MANUAL DIFF FLAG NO; Mean Corpuscular HGB Conc 33.9 g/dl (31.0-35.0); Mean Corpuscular Hemoglobin 29.6 pg (27.0-33.0); Mean Corpuscular Volume 87.4 fL (80-98); Mean Platelet Volume 10.3 fL (9.4-12.3); Monocytes Percent Auto 8.3 % (2-11); Neutrophils Percent Auto 74.7 % (45-73); Platelet Count 276 X10*3/uL (160-400); Red Blood Count 4.59 X10*6/uL (4.20-5.50); Red Cell Distribution Width 13.7 % (11.0-16.0)
[2021-07-08 15:37] LABS: INTERNATIONAL NORM RATIO 1.2 (0.9-1.1); Prothrombin Time 13.5 SEC (9.9-13.0)
[2021-07-08 15:45] LABS: COVID-19 Test Negative (Negative)
[2021-07-08 15:56] LABS: Alanine Aminotransferase 35 U/L (0-31); Alkaline Phosphatase 88 U/L (39-117); Anion Gap 15 (12-20); Aspartate Amino Transferase 38 U/L (5-31); Bilirubin Direct 0.4 mg/dL (0.0-0.5); Bilirubin Total 1.3 mg/dL (0.0-1.0); Blood Urea Nitrogen 14 mg/dL (9-16); Calcium 9.5 mg/dL (8.4-10.2); Carbon Dioxide 27 mmol/L (22-29); Chloride 101 mmol/L (96-108); Creatinine Clr Calc Pharmacy 47.4; Estimated Glomerular Filt Rate 47; Glucose Random 182 mg/dL (60-115); Magnesium 2.3 mg/dL (1.6-2.6); Potassium 3.9 mmol/L (3.3-5.1); Sodium 139 mmol/L (135-145); Total Protein 7.3 g/dL (6.5-8.0)
[2021-07-08 16:00] VITALS: BP 199/80; PULSE 82; RESP 16; TEMP 36.9; O2SAT 96
[2021-07-08 16:00] LABS: Troponin-I High Sensitivity 8.5 ng/L (<3.5-17.0)
--- NOTE | 2021-07-08 16:27 | PC.NURSE ---
PATIENT WAS A 2 ASSIST TRANSFER TO BEDSIDE COMMODE ,AFTER USING BEDSIDE COMMODE PATIENT COULD NOT BEAR WEIGHT ON LEGS ,RN AWARE .
[2021-07-08 16:37] LABS: Glucose Urine UA NEG (NEG); Leukocyte Esterase Urine 1+ (NEG); Nitrite Urine NEG (NEG); UACC Culture Trigger YES; Urine Blood NEG (NEG); Urine Ketones 5 MG/DL (NEG); Urine Protein TRACE MG/DL (NEG-TRACE)
[2021-07-08 16:40] LABS: Appearance Urine CLEAR; Color Urine YELLOW
--- NOTE | 2021-07-08 16:40 | PC.NURSE ---
patient had a chicken salad sandwich and a carton of milk
[2021-07-08 17:21] LABS: Hyaline Casts Urine 0-2 /LPF; RBC Urine 0-2 /HPF (0); Squamous Epithelial Cell Urine 4+ /LPF
[2021-07-08 18:00] VITALS: BP 197/87; PULSE 83; RESP 16; TEMP 36.6; O2SAT 95
--- NOTE | 2021-07-08 18:42 | PC.NURSE ---
PT HAD 3 LARGE SOFT LIQUID BOWEL MOVEMENTS ON BED AND FLOOR. PT MULTIPLE TIMES REORIENTATED TO CALL [facility] TO CALL FOR ASSISTANCE. PER PT i DONT' HAVE TIME TO DO THIS,I'M GOING TO SHIT ANYWAY. I FALL ALL THE TIME OUTSIDE AND AT HOME. PT MOVED TO HOSPITAL BED FLOOR CLEANED BY THIS RN,[facility] CARE DONE, PT GIVEN CALL [facility]. FALL RISK VISUAL CUES REMAIN. BED ALARM ON.
--- NOTE | 2021-07-08 18:44 | PC.NURSE ---
PATIENT WAS INCONTINENT OF LOOSE STOOL TIMES 3 ,PATIENT WAS GIVEN A BED BATH PATIENT REFUSED DINNER .,YISEL CARROLL
[2021-07-08 20:00] VITALS: BP 174/95; PULSE 72; RESP 16; TEMP 26.5; O2SAT 97
--- NOTE | 2021-07-08 20:12 | PC.NURSE ---
PATIENT NEEDED 2 PERSON AND THE SIT TO STAND FOR TRANSFER .
[2021-07-08 21:38] VITALS: RESP 16
[2021-07-09] VITALS (7 sets, daily range): BP systolic 120–201; BP diastolic 73–98; PULSE 72–83; RESP 16–18; O2SAT 97–98
--- NOTE | 2021-07-09 08:05 | PC.NURSE ---
pt noted to have right sided weakness this am, iv started and pt currently in ct to r/o stroke.
[2021-07-09 08:11] LABS: Glucose, Whole Blood 248 mg/dL (60-115)
[2021-07-09 08:13] LABS: Prothrombin Time Whole Bld POC 13.5 sec (11.1-13.5); ~PT, ~INR - Anti Coag Clinic 1.1 (0.9-1.1)
--- NOTE | 2021-07-09 08:19 | PC.NURSE ---
RN aware POC 248
--- NOTE | 2021-07-09 10:00 | PC.NURSE ---
PT CONTINUES TO STATE SHE WANTS TO GO HOME WILL TOUCH BASE WITH PROVIDER
--- NOTE | 2021-07-09 11:21 | PC.NURSE ---
Patient repositioned in chair, incontinence care provided.
--- NOTE | 2021-07-09 11:44 | MHC.CM.ED ---
Received case management consult overnight. Patient came to the ER due to falls and leg pain. Physical therapy eval completed. Short term rehab is recommended. Met with patient and son Shiv. Patient uses a cane/walker for mobility and had no services prior to coming to the ER. Patient hasn't seen her PCP since March 2020. Patient takes no medication at home. Copy of HCP obtained by Shiv. Patient received 2 Pfizer vaccines. List of acute rehabs and custodial facilities provided to patient and son. Acute rehab is first choice. Patient and Shiv agreeable to referral to all 3 acute rehabs. Continue to monitor for d/c needs.
--- NOTE | 2021-07-09 12:51 | MHC.MBSS ---
Patient use commode with assist of 2 and stand assist
--- NOTE | 2021-07-09 13:45 | PC.NURSE ---
Patient moved to hospital bed and positioned on right side with pillow. Call hill in reach.
--- NOTE | 2021-07-09 15:59 | MHC.CM.ED ---
None of the 3 acute rehab facilities are able to offer a bed. Referral broadcasted in [employer]. As of right now [facility] and [place] are able to offer a bed. Spoke with patient's son/HCP Shiv. He will look into these faciltiies and provide 1st choice to case management. Anticipate patient will spend the night in the ER. Continue to monitor for d/c needs.
[2021-07-09] MEDS: amLODIPine Besylate 5 MG TABLET PO ×2 (17:11→20:51)
--- NOTE | 2021-07-09 19:59 | PC.NURSE ---
Patient repositioned in bed in NAD. toileted on commode assist of two and stand assist.
--- NOTE | 2021-07-09 22:33 | PC.NURSE ---
Patient repositioned in bed in NAD, breathing even and unlabored. MD aware of patient BP.
--- NOTE | 2021-07-09 23:03 | PC.NURSE ---
Patient having right sided weakness coming at 1100 when toileting patient. Per report patient, had right sided weakness starting at [address] negative. This RN reviewed notes from previous RN and provider at this time. Right sided weakness was reported as a mild right sided drift. At this time, Patient unable to moves right side leg and arm when transferring. MD Peterson aware and to evaluate patient.
--- NOTE | 2021-07-09 23:25 | PC.NURSE ---
REPORT FROM DEMETRI MORILLO, DR. AVALOS AND DEMETRI IN ROOM WITH THIS RN FOR EVALUATION. PATIENT HAVING SIGNIFICANT WEAKNESS TO THE RIGHT SIDE. DEMETRI RN STATING THAT, THE WEAKNESS BEEN PRESENT SINCE THE START OF HER SHIFT AT 11AM. PATIENT UNABLE TO LIFT RIGHT LEG, THEN PATIENT SEEN MOVING LEG BY THIS RN WHEN MD WAS EVALUATING HAND GRASP. ASKING FOR PATIENT TO PUSH AGAINST HANDS TO EVALUATE STRENGTH IN LEGS, ABLE TO NOW PUSH HARDER AGAINST THIS RNS HANDS. STILL UNABLE TO LIFT ARM, DIFFICULTY MOVING HERSELF IN THE BED. DR. AVALOS ORDERS FOR ADDITIONAL CT SCAN FOR COMPARISON OF ANY CHANGES IN THE BRAIN DUE TO WHOLE RIGHT SIDED WEAKNESS. PATIENT REPORTS NO VISUAL CHANGES.
--- NOTE | 2021-07-10 01:11 | PC.NURSE ---
patient sleeping comfortably, awaiting ct scan results
--- NOTE | 2021-07-10 01:47 | PC.NURSE ---
patient calling this rn into the room, stating I need to get up and use the commode. patient can not move the right side of her body, having significant weakness as documented by md and this rn. patient stating put down the railings and i will just roll onto the floor and crawl to the commode,I did it before . this rn explaining that the safest toileting plan for the patient is to use a bedpan, until physical therapy can evaluate and develop an new plan for patient. patient can not stand to bare weight on the right side with a significant lean and unable to hold herself up. patient swearing that this rn and calling her stupid and worthless due to trying to toilet her on a bedpan. repeatedly calling rn into the room stating that she needs to be toileted just to state she needs to get out of bed and refusing to do anything else. concern over patients safety seeing as she would rather throw herself on the ground than use a bed rojas. patient stating i will if you put me on that , trying to prove that she can move extremities on the right side, minimal movement of leg with even less movement of the right arm. explaining to the md patients frustrations md reevaluating and wanting neuro and physical therapy and case management to follow patient
[2021-07-10 08:26] VITALS: BP 186/87; PULSE 74; RESP 18; TEMP 36.8; O2SAT 95
--- NOTE | 2021-07-10 08:41 | MHC.CM.ED ---
Patient remains in ER. [facility] and [facility] are only facilities that have offered beds yet. Per son, Shiv, [facility] is first choice. Clinical updates sent via [employer]. Patient's BP has been elevated. Nichole COTE aware and will be starting hypertensive medication. Continue to monitor for d/c needs.
--- NOTE | 2021-07-10 09:37 | MHC.CM.ED ---
Per Watson, patient can leave at 11am. [facility] booked. Med nec with chart. Patient, son Shiv, Marielena MORILLO and Nichole COTE aware. Continue to monitor for d/c needs.
[2021-07-10 10:37] VITALS: BP 186/87; PULSE 75
[2021-07-10] MEDS: amLODIPine Besylate 5 MG TABLET PO (10:37)
--- NOTE | 2021-07-10 11:31 | PC.NURSE ---
NURSE TO NURSE GIVEN TO MANA (RN), PT AWARE OF PLAN OF CARE FOR TRANSFER TO [facility] VIA AMBULANCE.
== END 2021-07-10 11:32 | disposition skilled nursing facility (03) ==
PROVIDERS: Nurse Practitioner Family; Emergency Provider Emergency Medicine; PCP Internal Medicine
DX: R41.82 Altered mental status, unspecified (principal); R53.1 Weakness; I10 Essential (primary) hypertension; R51.9 Headache, unspecified; R29.810 Facial weakness; R07.9 Chest pain, unspecified; M79.605 Pain in left leg; M79.604 Pain in right leg; Z91.81 History of falling; Z20.822 Contact with and (suspected) exposure to COVID-19; Z79.899 Other long term (current) drug therapy
CPT/HCPCS: 36415; 70450; 70496; 70498; 71046; 73560; 80048; 80076; 81001; 82550; 82947; 83735; 84484; 85025; 85610; 87086; 87635; 93005; 97162; 99285